=== PATIENT | female | born 1995 | race Caucasian/White ===

== ENCOUNTER 2017-03-17 04:55 | Emergency (ER) | payer MEDICAID, OTHER ==
[2017-03-17 05:17] VITALS: BP 110/78
--- NOTE | 2017-03-17 05:31 | EDM.PDOC ---
ED HPI GENERAL MEDICAL PROBLEM - General Chief Complaint: Gastrointestinal Problem Stated Complaint: Vomiting, diarrhea Time Seen by Provider: 03/17/17 05:01 Source of Information: Reports: Patient, RN, RN Notes Reviewed History Limitations: Reports: No Limitations - History of Present Illness INITIAL COMMENTS - FREE TEXT/NARRATIVE: The emergency room at [facility] complaining of vomiting and diarrhea. The patient states that the diarrhea started 2 days ago. The patient states that the vomiting started about 9 PM last evening. The vomitus has been bile sofia and also food contents. The patient states she's had approximately 12 episodes of vomiting. The patient states that her diarrhea has been very watery. She complains of abdominal cramping. The patient thinks she's had approximately 20 stools that have been watery. The patient denies any UTI symptoms. No close family members or contacts with similar symptoms. The patient has not had any fevers or chills. Otherwise no other complaints. Onset Date: 03/15/17 Duration: Waxing/Waning Location: Reports: Abdomen Quality: Reports: Sharp Severity: Mild Improves with: Reports: Rest Worsens with: Reports: None Context: Denies: Activity, Exercise, Lifting, Sick Contact, Trauma Associated Symptoms: Reports: Nausea/Vomiting epigastric pain Pain Score (Numeric/FACES): 6 - Related Data Allergies Allergy/AdvReac Type Severity Reaction Status Date / Time No Known Allergies Allergy Verified 03/17/17 05:44 Home Meds: Home Meds Ondansetron HCl [Ondansetron] 4 mg PO Q8H PRN #10 tablet 03/17/17 [Rx] predniSONE [Deltasone] 20 mg PO BID #10 tablet 03/17/17 [Rx] 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: - Past Surgical History HEENT Surgical History: Reports: Oral Surgery ED ROS GENERAL - Review of Systems Review Of Systems: See Below Constitutional: Denies: Fever, Chills, Weakness Respiratory: Denies: Shortness of Breath, Cough Cardiovascular: Denies: Chest Pain, Palpitations GI/Abdominal: Reports: Abdominal Pain, Diarrhea, Nausea, Vomiting Skin: Reports: No Symptoms Neurological: Reports: No Symptoms ED EXAM, GI/ABD - Physical Exam Exam: See Below Exam Limited By: No Limitations General Appearance: Alert, No Apparent Distress, Thin Respiratory/Chest: No Respiratory Distress, Lungs Clear, Normal Breath Sounds Cardiovascular: Normal Peripheral Pulses, Regular Rate, Rhythm GI/Abdominal Exam: Normal Bowel Sounds, Soft, Tender (generalized) Neurological: Alert, Oriented Skin Exam: Warm, Dry, Intact, Normal Color, No Rash Course - Vital Signs Last Recorded V/S: Last Vital Signs Temp 36.1 C 03/17/17 05:00 Pulse 96 03/17/17 05:00 Resp 16 03/17/17 05:00 BP 110/78 03/17/17 05:00 Pulse Ox 97 03/17/17 05:00 - Orders/Labs/Meds Orders: Active Orders 24 hr Category Date Time Status Abdomen Pelvis w Cont [CT] Stat Exams 03/17/17 06:59 Taken Sodium Chloride 0.9% [Normal Saline] 100 ml Med 03/17/17 08:15 Active IV ASDIRECTED Sodium Chloride 0.9% [Saline Flush] Med 03/17/17 05:43 Active 10 ml FLUSH ASDIRECTED PRN methylPREDNISolone Sod Succ [Solu-MEDROL] Med 03/17/17 08:32 Once 125 mg IVPUSH ONETIME ONE Peripheral IV Insertion Adult [OM.PC] Routine Oth 03/17/17 05:43 Ordered Medication Orders Sodium Chloride (Normal Saline) 100 mls @ 3 mls/sec IV ASDIRECTED NATALIE Last Admin: 03/17/17 08:09 Dose: 3 mls/sec Sodium Chloride (Saline Flush) 10 ml FLUSH ASDIRECTED PRN PRN Reason: Keep Vein Open Labs: Laboratory Tests 03/17/17 03/17/17 03/17/17 Range/Units 06:07 06:07 06:07 WBC 18.4 H (4.0-10.0) x10^3/uL RBC 4.08 (4.00-5.50) x10^6/uL Hgb 12.7 (12.0-16.0) g/dL Hct 35.4 (33.0-47.0) % MCV 86.8 (78.0-93.0) fL MCH 31.1 (26.0-32.0) pg MCHC 35.9 (32.0-36.0) g/dL RDW Coeff of Jorden 12.7 (10.0-15.0) % Plt Count 265 (130-400) x10^3/uL Neut % (Auto) 87.0 H (50.0-80.0) % Lymph % (Auto) 7.2 L (25.0-50.0) % [place] % (Auto) 5.4 (2.0-11.0) % Eos % (Auto) 0.3 (0.0-4.0) % Baso % (Auto) 0.1 L (0.2-1.2) % Sodium 140 (136-145) mmol/L Potassium 3.5 (3.5-5.1) mmol/L Chloride 109 H (98-107) mmol/L Carbon Dioxide 22 (21-32) mmol/L BUN 7 (7-18) mg/dL Creatinine 0.9 (0.55-1.02) mg/dL Est Cr Clr Drug Dosing TNP Estimated GFR (MDRD) > 60 Glucose 104 (74-106) mg/dL Lactic Acid 0.8 (0.4-2.0) mmol/L Calcium 8.8 (8.5-10.1) mg/dL C-Reactive Protein (<=0.9) mg/dL Amylase 65 (25-115) U/L Lipase 125 (73-393) U/L Urine Color (YELLOW) Urine Appearance (CLEAR) Urine pH (5.0-8.0) Ur Specific [place] Urine Protein (NEGATIVE) mg/dL Urine Glucose (UA) (NEGATIVE) mg/dL Urine Ketones (NEGATIVE) mg/dL Urine Occult Blood (NEGATIVE) Urine Nitrite (NEGATIVE) Urine Bilirubin (NEGATIVE) Urine Urobilinogen (0.2) EU/dL Ur Leukocyte Esterase (NEGATIVE) Urine RBC (NOT SEEN) /HPF Urine WBC (NOT SEEN) /HPF Ur Squamous Epith Cells (NEGATIVE) /HPF Urine Bacteria (NEGATIVE) /HPF Urine Mucus (NEGATIVE) /LPF Urine Yeast (Budding) Urine HCG, Qual (NEGATIVE) 03/17/17 03/17/17 03/17/17 Range/Units 06:07 06:50 06:50 WBC (4.0-10.0) x10^3/uL RBC (4.00-5.50) x10^6/uL Hgb (12.0-16.0) g/dL Hct (33.0-47.0) % MCV (78.0-93.0) fL MCH (26.0-32.0) pg MCHC (32.0-36.0) g/dL RDW Coeff of Jorden (10.0-15.0) % Plt Count (130-400) x10^3/uL Neut % (Auto) (50.0-80.0) % Lymph % (Auto) (25.0-50.0) % [place] % (Auto) (2.0-11.0) % Eos % (Auto) (0.0-4.0) % Baso % (Auto) (0.2-1.2) % Sodium (136-145) mmol/L Potassium (3.5-5.1) mmol/L Chloride (98-107) mmol/L Carbon Dioxide (21-32) mmol/L BUN (7-18) mg/dL Creatinine (0.55-1.02) mg/dL Est Cr Clr Drug Dosing Estimated GFR (MDRD) Glucose (74-106) mg/dL Lactic Acid (0.4-2.0) mmol/L Calcium (8.5-10.1) mg/dL C-Reactive Protein 0.4 (<=0.9) mg/dL Amylase (25-115) U/L Lipase (73-393) U/L Urine Color Yellow (YELLOW) Urine Appearance Slightly cloudy H (CLEAR) Urine pH 5.5 (5.0-8.0) Ur Specific [place] >=1.030 Urine Protein 30 H (NEGATIVE) mg/dL Urine Glucose (UA) Negative (NEGATIVE) mg/dL Urine Ketones Negative (NEGATIVE) mg/dL Urine Occult Blood Negative (NEGATIVE) Urine Nitrite Negative (NEGATIVE) Urine Bilirubin Small H (NEGATIVE) Urine Urobilinogen 0.2 (0.2) EU/dL Ur Leukocyte Esterase Negative (NEGATIVE) Urine RBC Not seen (NOT SEEN) /HPF Urine WBC 0-5 (NOT SEEN) /HPF Ur Squamous Epith Cells Moderate H (NEGATIVE) /HPF Urine Bacteria Few H (NEGATIVE) /HPF Urine Mucus Many H (NEGATIVE) /LPF Urine Yeast (Budding) Not seen Urine HCG, Qual Negative (NEGATIVE) Meds: Medications Generic Name Dose Route Start Last Admin Trade Name Freq PRN Reason Stop Dose Admin Sodium Chloride 100 mls @ 3 mls/sec 03/17/17 08:15 03/17/17 08:09 Normal Saline IV 3 mls/sec ASDIRECTED NATALIE Administration Sodium Chloride 10 ml 03/17/17 05:43 Saline Flush FLUSH ASDIRECTED PRN Keep Vein Open Discontinued Medications Generic Name Dose Route Start Last Admin Trade Name Sergo PRN Reason Stop Dose Admin Sodium Chloride 1,000 mls @ 999 mls/hr 03/17/17 05:44 03/17/17 06:20 Normal Saline IV 03/17/17 06:44 999 mls/hr ONETIME ONE Administration Sodium Chloride 1,000 mls @ 999 mls/hr 03/17/17 06:58 03/17/17 07:30 Normal Saline IV 03/17/17 07:58 999 mls/hr ONETIME ONE Administration Iopamidol 100 ml 03/17/17 08:06 03/17/17 08:08 Isovue-300 (61%) IVPUSH 03/17/17 08:07 100 ml ONETIME ONE Administration Ketorolac Tromethamine 30 mg 03/17/17 05:44 03/17/17 06:23 Toradol IVPUSH 03/17/17 05:45 30 mg ONETIME ONE Administration Ondansetron HCl 4 mg 03/17/17 05:44 03/17/17 06:20 Zofran IVPUSH 03/17/17 05:45 4 mg ONETIME ONE Administration Pantoprazole Sodium 40 mg 03/17/17 05:44 03/17/17 06:31 Protonix Iv IVPUSH 03/17/17 05:45 40 mg ONETIME ONE Administration Departure - Departure Time of Disposition: 08:33 Disposition: Home, Self-Care 01 Condition: Good Clinical Impression: Ileitis, Hepatic hemangioma, Follicular cyst of right ovary - Discharge Information Prescriptions: Ondansetron HCl [Ondansetron] 4 mg PO Q8H PRN #10 tablet PRN Reason: Nausea/Vomiting predniSONE [Deltasone] 20 mg PO BID #10 tablet Referrals: Christina Álvarez MD [Physician] - Forms: ED Department Discharge Additional Instructions: 1. Stay well hydrated and rest 2. Eat a bland diet; avoid fatty, greasy foods 3. Take medications as prescribed 4. You have an appointment with Dr. Christina Álvarez tomorrow March 17, 2017 at 1:20pm 5. Call your rehabilitation caseworker to change your Primary Care Provider to Dr. Álvarez ED Communication - ED Communication Date/Time Date: 03/17/17 Time Called: 08:15 - Discussed Case With (1) Discussed Case With (1): Radiologist (Dr. Frank Villavicencio) - Conversation Summary Radiology Reading Discussed with Radiologist: Yes - Problem List Review Problem List Initiated/Reviewed/Updated: Yes - My Orders Last 24 Hours: My Active Orders 03/17/17 05:43 Sodium Chloride 0.9% [Saline Flush] 10 ml FLUSH ASDIRECTED PRN Peripheral IV Insertion Adult [OM.PC] Routine 03/17/17 06:59 Abdomen Pelvis w Cont [CT] Stat 03/17/17 08:15 Sodium Chloride 0.9% [Normal Saline] 100 ml IV ASDIRECTED 03/17/17 08:32 methylPREDNISolone Sod Succ [Solu-MEDROL] 125 mg IVPUSH ONETIME ONE - Assessment/Plan Last 24 Hours: My Active Orders 03/17/17 05:43 Sodium Chloride 0.9% [Saline Flush] 10 ml FLUSH ASDIRECTED PRN Peripheral IV Insertion Adult [OM.PC] Routine 03/17/17 06:59 Abdomen Pelvis w Cont [CT] Stat 03/17/17 08:15 Sodium Chloride 0.9% [Normal Saline] 100 ml IV ASDIRECTED 03/17/17 08:32 methylPREDNISolone Sod Succ [Solu-MEDROL] 125 mg IVPUSH ONETIME ONE
[2017-03-17] MEDS ORDERED: Sodium Chloride 0.9% 10 ML Syringe FLUSH PRN (05:43)
[2017-03-17] MEDS ORDERED: Ketorolac 30 MG/ML SDV IVPUSH ONE (05:44)
[2017-03-17] MEDS ORDERED: Pantoprazole 40 MG Vial IVPUSH ONE (05:44)
[2017-03-17] MEDS ORDERED: Ondansetron 4 MG/2 ML SDV IVPUSH ONE (05:44)
[2017-03-17] MEDS ORDERED: Sodium Chloride 0.9% 1,000 ML IV ONE ×2 (05:44→06:58)
[2017-03-17 06:27] LABS: CHLORIDE,CL 109 mmol/L (98-107); SODIUM,NA 140 mmol/L (136-145)
[2017-03-17] MEDS ORDERED: Iopamidol 612 MG/ML 100 ML Bottle IVPUSH ONE (08:06)
[2017-03-17] MEDS ORDERED: Sodium Chloride 0.9% 100 ML IV SCH (08:15)
[2017-03-17] MEDS ORDERED: methylPREDNISolone Sodium Succinate 125 MG/2 ML SDV IVPUSH ONE (08:32)
== END 2017-03-17 09:03 | disposition home or self-care (01) ==
LOC: VM.ED 04:55
DX: K52.9 Noninfective gastroenteritis and colitis, unspecified (principal); D18.03 Hemangioma of intra-abdominal structures; N83.01 Follicular cyst of right ovary
CPT/HCPCS: 36415; 74177; 80048; 81001; 81025; 82150; 83605; 83690; 85025; 86140; 96361; 96374; 96375; 99284; C9113; J1885; J2405; J2930; J7030; J7050; Q9967

== ENCOUNTER 2017-04-06 08:40 | Day surgery (SDC) | payer MEDICAID ==
[~2017-04-06 08:40] MED LIST: Lactated Ringers 1,000 ML IV SCH
[2017-04-06] MEDS ORDERED: Propofol 200 MG/20 ML SDV ONE (10:01)
[2017-04-06] MEDS ORDERED: fentaNYL 100 MCG/2 ML SDV ONE (10:45)
[2017-04-06 12:01] VITALS: BP 96/54
--- NOTE | 2017-04-06 17:05 | OR ---
PREOPERATIVE DIAGNOSES: Diarrhea, change in bowel pattern, family history of Crohn's. POSTOPERATIVE DIAGNOSIS: Normal colonoscopic exam. Normal ileal exam. PROCEDURE PROPOSED AND PROCEDURE DONE: Total flexible colonoscopy with ileal and random colon biopsies. INDICATION: This is a 21-year-old female with about a month's history of significant diarrhea with a fairly sudden change in bowel patterns, some abdominal cramping, family history of Crohn's, and she was referred for colonoscopic exam. TECHNIQUE AND FINDINGS: The patient was brought to the endoscopy suite and placed in left lateral decubitus position. She was sedated per INDUSTRIAL REHABILITATION CONSULTANT with propofol. The flexible video colonoscope was then passed transanally and under visualization, advanced to the cecum. I was then able to intubate the ilium. The ilium appeared normal. No signs of any Crohn's or inflammation. Multiple biopsies were taken of the ilium. I brought the scope back into the colon. The entire colon looked very normal and healthy. The mucosa was very smooth and healthy appearing. No signs of any inflammation or ulceration. Multiple random biopsies were taken, approximately 12, throughout the colon for pathologic examination. There were no signs of any diverticular disease, polyps, or any other abnormalities. The scope was then withdrawn. She tolerated the procedure well. FINAL IMPRESSION: Normal exam of ilium and colon. Biopsies pending. PLAN: She does have a followup appointment with Dr. Álvarez next week. It appears that this is more of an irritable bowel problem as opposed to an inflammatory bowel disease. She may have had an element of self- limited colitis that resolved, but the exam was entirely normal today. Dr. Álvarez will continue management of this problem. SCM: 04/06/2017 10:59:03 MODL: 04/06/2017 16:21:32 /[id number]
--- NOTE | 2017-04-26 08:45 | LETTER ---
04/26/2017 Xiao Parikh RE: XIAO PARIKH : 1995 Dear Xiao: All the biopsies taken from your terminal ileum and your colon came back normal. There was no evidence of any bowel disease such as Crohn's or colitis. I am hoping that things are improving for you. If you have any further questions feel free to call. Respectfully,
== END 2017-04-06 12:19 | disposition home or self-care (01) ==
LOC: VM.SDS 08:40
PROVIDERS: ATTEND Surgery
DX: R19.7 Diarrhea, unspecified (principal); R19.4 Change in bowel habit; F41.1 Generalized anxiety disorder; F33.1 Major depressive disorder, recurrent, moderate; Z83.79 Family history of other diseases of the digestive system; Z91.018 Allergy to other foods; Z98.890 Other specified postprocedural states; F17.200 Nicotine dependence, unspecified, uncomplicated
CPT/HCPCS: 45380; 81025; J2704; J3010; J7120

== ENCOUNTER 2019-05-30 11:42 | Emergency (ER) | payer MEDICAID ==
[2019-05-30] MEDS: Sodium Chloride 0.9% 1,000 ML IV ONE (11:55)
[2019-05-30] MEDS ORDERED: Sodium Chloride 0.9% 10 ML Syringe FLUSH PRN (11:55)
[2019-05-30] MEDS: Ondansetron 4 MG/2 ML SDV IVPUSH ONE (12:00)
--- NOTE | 2019-05-30 12:12 | EDM.PDOC ---
ED HPI GENERAL MEDICAL PROBLEM - General Chief Complaint: General Time Seen by Provider: 05/30/19 11:45 Source of Information: Reports: Patient History Limitations: Reports: No Limitations - History of Present Illness INITIAL COMMENTS - FREE TEXT/NARRATIVE: Pt. presents to ER with complaints of nausea, vomiting, and diarrhea for approx. 12 hours. She states that she is also experiencing some body aches and fatigue. She complains of sinus congestion. Denies any chest pain or shortness of breath. Pt. states that she is not sure home many episodes of diarrhea and vomiting she has had. Denies any sick contacts. Denies any melena, hematochezia, or hematemesis. She has not had her influenza vaccination this year. Pt. complains of diffuse abdominal cramping. Denies any focal tenderness. Onset: Today Location: Reports: Abdomen, Generalized Associated Symptoms: Reports: Malaise, Nausea/Vomiting, Weakness. Denies: Confusion, Chest Pain, Cough, cough w sputum, Diaphoresis, Fever/Chills, Rash, Seizure, Shortness of Breath, Syncope Generalized Pain Score (Numeric/FACES): 6 - Related Data Allergies Allergy/AdvReac Type Severity Reaction Status Date / Time banana Allergy Itching Verified 05/30/19 12:54 honey Allergy Edema Verified 05/30/19 12:54 chapstick Allergy Itching Uncoded 05/30/19 12:54 Home Meds: Home Meds . 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 idopathic toewalking Neurological History: Reports: None Psychiatric History: Reports: Anxiety, Depression, Panic Attack Endocrine/Metabolic History: Reports: None Hematologic History: Reports: None Immunologic History: Reports: None Oncologic (Cancer) History: Reports: None Dermatologic History: Reports: None - Past Surgical History GI Surgical History: ED ROS GENERAL - Review of Systems Review Of Systems: See Below Constitutional: Reports: Malaise, Weakness, Fatigue, Decreased Appetite. Denies : Night Sweats, Diaphoresis HEENT: Reports: Sinus Problem Respiratory: Reports: No Symptoms Cardiovascular: Reports: No Symptoms Endocrine: Reports: No Symptoms GI/Abdominal: Reports: Abdominal Pain, Diarrhea, Nausea, Vomiting. Denies: Constipation, Hematemesis, Hematochezia, Melena : Reports: No Symptoms Musculoskeletal: Reports: No Symptoms Skin: Reports: No Symptoms Neurological: Reports: No Symptoms Psychiatric: Reports: No Symptoms Hematologic/Lymphatic: Reports: No Symptoms ED EXAM, GENERAL - Physical Exam Exam: See Below Exam Limited By: No Limitations General Appearance: Alert, WD/WN, Mild Distress Eye Exam: Bilateral Eye: EOMI, PERRL Nose: Normal Inspection, No Blood Throat/Mouth: Normal Lips, Normal Teeth, Normal Gums, Normal Oropharynx, Normal Voice, No Airway Compromise, Other (oral mucosa dry) Head: Atraumatic, Normocephalic Neck: Normal Inspection, Supple, Non-Tender, Full Range of Motion Respiratory/Chest: No Respiratory Distress, Lungs Clear, Normal Breath Sounds, No Accessory Muscle Use, Chest Non-Tender Cardiovascular: Normal Peripheral Pulses, Regular Rate, Rhythm, No Edema, No Gallop, No JVD, No Murmur, No Rub GI/Abdominal: Normal Bowel Sounds, Soft, No Organomegaly, No Distention, No Abnormal Bruit, No Mass, Tender (diffusely tender throughout). No: Abnormal Bowel Sounds (Female) Exam: Deferred Rectal (Female) Exam: Deferred Back Exam: Normal Inspection, Full Range of Motion Extremities: Normal Inspection, Normal Range of Motion, Non-Tender, No Pedal Edema, Normal Capillary Refill Neurological: Alert, Oriented, CN II-XII Intact, Normal Cognition, Normal Gait, Normal Reflexes, No Motor/Sensory Deficits Psychiatric: Normal Affect, Normal Mood Skin Exam: Warm, Dry, Intact, No Rash, Pallor Lymphatic: No Adenopathy Course - Vital Signs Last Recorded V/S: Last Vital Signs Temp 36.5 C 05/30/19 11:42 Pulse 85 05/30/19 11:42 Resp 16 05/30/19 11:42 BP 113/72 05/30/19 11:42 Pulse Ox 99 05/30/19 11:42 - Orders/Labs/Meds Orders: Active Orders 24 hr Category Date Time Status Peripheral IV Insertion Adult [OM.PC] Routine Oth 05/30/19 11:55 Ordered Labs: Laboratory Tests 05/30/19 05/30/19 05/30/19 Range/Units 12:05 12:05 12:05 WBC 13.4 H (4.0-10.0) x10^3/uL RBC 4.29 (4.00-5.50) x10^6/uL Hgb 12.9 (12.0-16.0) g/dL Hct 38.3 (33.0-47.0) % MCV 89.3 (78.0-93.0) fL MCH 30.1 (26.0-32.0) pg MCHC 33.7 (32.0-36.0) g/dL RDW Coeff of Jorden 12.8 (10.0-15.0) % Plt Count 261 (130-400) x10^3/uL Neut % (Auto) 94.7 H (50.0-80.0) % Lymph % (Auto) 2.7 L (25.0-50.0) % [place] % (Auto) 2.5 (2.0-11.0) % Eos % (Auto) 0.0 (0.0-4.0) % Baso % (Auto) 0.1 L (0.2-1.2) % PT 11.0 (10.0-12.8) SEC INR 1.0 L (2.0-3.5) Sodium 141 (136-145) mmol/L Potassium 3.7 (3.5-5.1) mmol/L Chloride 104 (98-107) mmol/L Carbon Dioxide 20 L (21-32) mmol/L Anion Gap 20.7 H (10-20) mmol/L BUN 9 (7-18) mg/dL Creatinine 0.9 (0.55-1.02) mg/dL Est Cr Clr Drug Dosing TNP Estimated GFR (MDRD) > 60 Glucose 103 (74-106) mg/dL Calcium 8.8 (8.5-10.1) mg/dL Corrected Calcium 8.64 (8.5-10.1) mg/dL Phosphorus 3.5 (2.6-4.7) mg/dL Magnesium 1.6 L (1.8-2.4) mg/dL Total Bilirubin 1.4 H (0.2-1.0) mg/dL AST 15 (15-37) U/L ALT 15 (14-59) U/L Alkaline Phosphatase 50 (46-116) U/L C-Reactive Protein < 0.2 (<=0.9) mg/dL Total Protein 7.9 (6.4-8.2) g/dL Albumin 4.2 (3.4-5.0) g/dL Globulin 3.7 Albumin/Globulin Ratio 1.14 Urine Color (YELLOW) Urine Appearance (CLEAR) Urine pH (5.0-8.0) Ur Specific [place] Urine Protein (NEGATIVE) mg/dL Urine Glucose (UA) (NEGATIVE) mg/dL Urine Ketones (NEGATIVE) mg/dL Urine Occult Blood (NEGATIVE) Urine Nitrite (NEGATIVE) Urine Bilirubin (NEGATIVE) Urine Urobilinogen (0.2) EU/dL Ur Leukocyte Esterase (NEGATIVE) Urine RBC (NOT SEEN) /HPF Urine WBC (NOT SEEN) /HPF Ur Squamous Epith Cells (NEGATIVE) /HPF Amorphous Sediment Urine Bacteria (NEGATIVE) /HPF Urine Mucus (NEGATIVE) /LPF POC Urine HCG, Qual (NEGATIVE) 05/30/19 05/30/19 Range/Units 13:06 13:06 WBC (4.0-10.0) x10^3/uL RBC (4.00-5.50) x10^6/uL Hgb (12.0-16.0) g/dL Hct (33.0-47.0) % MCV (78.0-93.0) fL MCH (26.0-32.0) pg MCHC (32.0-36.0) g/dL RDW Coeff of [place] (10.0-15.0) % Plt Count (130-400) x10^3/uL Neut % (Auto) (50.0-80.0) % Lymph % (Auto) (25.0-50.0) % [place] % (Auto) (2.0-11.0) % Eos % (Auto) (0.0-4.0) % Baso % (Auto) (0.2-1.2) % PT (10.0-12.8) SEC INR (2.0-3.5) Sodium (136-145) mmol/L Potassium (3.5-5.1) mmol/L Chloride (98-107) mmol/L Carbon Dioxide (21-32) mmol/L Anion Gap (10-20) mmol/L BUN (7-18) mg/dL Creatinine (0.55-1.02) mg/dL Est Cr Clr Drug Dosing Estimated GFR (MDRD) Glucose (74-106) mg/dL Calcium (8.5-10.1) mg/dL Corrected Calcium (8.5-10.1) mg/dL Phosphorus (2.6-4.7) mg/dL Magnesium (1.8-2.4) mg/dL Total Bilirubin (0.2-1.0) mg/dL AST (15-37) U/L ALT (14-59) U/L Alkaline Phosphatase (46-116) U/L C-Reactive Protein (<=0.9) mg/dL Total Protein (6.4-8.2) g/dL Albumin (3.4-5.0) g/dL Globulin Albumin/Globulin Ratio Urine Color Dark yellow H (YELLOW) Urine Appearance Slightly cloudy H (CLEAR) Urine pH 5.5 (5.0-8.0) Ur Specific [place] >=1.030 Urine Protein 30 H (NEGATIVE) mg/dL Urine Glucose (UA) Negative (NEGATIVE) mg/dL Urine Ketones 40 H (NEGATIVE) mg/dL Urine Occult Blood Trace-lysed H (NEGATIVE) Urine Nitrite Negative (NEGATIVE) Urine Bilirubin Small H (NEGATIVE) Urine Urobilinogen 0.2 (0.2) EU/dL Ur Leukocyte Esterase Negative (NEGATIVE) Urine RBC 0-5 (NOT SEEN) /HPF Urine WBC 0-5 (NOT SEEN) /HPF Ur Squamous Epith Cells Moderate H (NEGATIVE) /HPF Amorphous Sediment Many Urine Bacteria Few H (NEGATIVE) /HPF Urine Mucus Many H (NEGATIVE) /LPF POC Urine HCG, Qual Negative (NEGATIVE) Meds: Medications Discontinued Medications Generic Name Dose Route Start Last Admin Trade Name Freq PRN Reason Stop Dose Admin Sodium Chloride 1,000 mls @ 1,000 mls/hr 05/30/19 11:56 05/30/19 11:55 Normal Saline IV 05/30/19 12:55 1,000 mls/hr .BOLUS ONE Administration Sodium Chloride 500 mls @ 500 mls/hr 05/30/19 13:31 05/30/19 13:45 Normal Saline IV 05/30/19 14:30 500 mls/hr ONETIME ONE Administration Iopamidol 100 ml 05/30/19 12:28 05/30/19 13:43 Isovue-300 (61%) IVPUSH 05/30/19 12:29 100 ml ONETIME ONE Administration Ketorolac Tromethamine 15 mg 05/30/19 12:08 05/30/19 12:13 Toradol IVPUSH 05/30/19 12:09 15 mg ONETIME ONE Administration Ondansetron HCl 4 mg 05/30/19 11:56 05/30/19 12:00 Zofran IVPUSH 05/30/19 11:57 4 mg ONETIME ONE Administration Sodium Chloride 10 ml 05/30/19 11:55 Saline Flush FLUSH ASDIRECTED PRN Keep Vein Open - Radiology Interpretation Free Text/Narrative:: Colonic wall thickening without free fluid or evidence of perforation. No obvious abscess. Appearance consistent with that of IBS. Departure - Departure Time of Disposition: 13:30 Disposition: Home, Self-Care 01 Clinical Impression: IBS (irritable bowel syndrome) - Discharge Information Instructions: Irritable Bowel Syndrome, Adult Referrals: Christina Álvarez MD [Primary Care Provider] - Forms: ED Department Discharge Additional Instructions: Home to rest. Tylenol and ibuprofen as needed for discomfort/fever. Zofran 4 mg ODT 1 tab every 6 hours. Clear liquid diet until noon tomorrow, then you can add toast, rice, apples, bananas, and other bland foods. Off work today and tomorrow. Return to ER if unable to hold down fluids. - My Orders Last 24 Hours: My Active Orders 05/30/19 11:55 Peripheral IV Insertion Adult [OM.PC] Routine - Assessment/Plan Last 24 Hours: My Active Orders 05/30/19 11:55 Peripheral IV Insertion Adult [OM.PC] Routine Plan: Home to rest. Tylenol and ibuprofen as needed for discomfort/fever. Zofran 4 mg ODT 1 tab every 6 hours. Clear liquid diet until noon tomorrow, then you can add toast, rice, apples, bananas, and other bland foods. Off work today and tomorrow. Return to ER if unable to hold down fluids.
[2019-05-30] MEDS: Ketorolac 15 MG/ML SDV IVPUSH ONE (12:13)
[2019-05-30 12:34] LABS: CHLORIDE,CL 104 mmol/L (98-107); SODIUM,NA 141 mmol/L (136-145)
[2019-05-30 12:35] LABS: ANION GAP 20.7 mmol/L (10-20)
[2019-05-30 12:57] VITALS: BP 113/72; PULSE 85
[2019-05-30] MEDS: Iopamidol 612 MG/ML 100 ML Bottle IVPUSH ONE (13:43)
[2019-05-30] MEDS: Sodium Chloride 0.9% 500 ML IV ONE (13:45)
--- NOTE | 2019-05-30 14:19 | CT ---
[id number] CT/CT Abdomen Pelvis W IV EXAM: CT Abdomen Pelvis W IV CLINICAL DATA: ABDOMINAL PAIN,ELEVATED WHITE BLOOD COUNT. COMPARISON STUDY: March 20, 2019. FINDINGS: In the pelvis there are numerous loops of small bowel that demonstrate mild amount of persistent wall thickening and/or fluid-filled. Findings suggest underlying enteritis. However appearance of the bowel has improved since the prior examination at which time there is increased wall thickening/edema. Appendix is not well-visualized. No secondary signs of acute appendicitis. No colitis or diverticulitis. Trace amount free fluid the pelvis, within normal physiologic limits for reproductive age female. Uterus and adnexal regions are radiographically unremarkable. No change in appearance of a heterogeneous hypodense mass in the right hepatic lobe. Mass measures up to 16 mm in diameter, similar size compared to the prior examination. There are multiple areas of discontinuous nodular peripheral enhancement, similar to the prior examination. No new hepatic lesions. IMPRESSION: Persistent wall thickening and numerous loops of small bowel in the pelvis. Findings are most consistent with changes of enteritis. The amount of wall thickening/edema has decreased since the prior CT examination. No evidence of an abscess. No other acute findings in the upper pelvis. Stable appearance of previously seen hypodense right hepatic lobe mass. Appearance is most consistent with hemangioma. A dedicated liver protocol CT can be performed to confirm these findings as clinically warranted. Frank Villavicencio MD 05/30/19 [id number] Thank you for allowing us to participate in the care of your patient.
== END 2019-05-30 14:43 | disposition home or self-care (01) ==
LOC: VM.ED 11:42
DX: K58.0 Irritable bowel syndrome with diarrhea (principal); Z91.018 Allergy to other foods
CPT/HCPCS: 36415; 74177; 80053; 81001; 81025; 83735; 84100; 85025; 85610; 86140; 87804; 96361; 96374; 96375; 99285; J1885; J2405; J7030; J7040; Q9967

== ENCOUNTER 2019-11-01 00:25 | Emergency (ER) | payer SELFPAY ==
--- NOTE | 2019-11-01 01:15 | EDM.PDOCBH ---
ED HPI GENERAL MEDICAL PROBLEM - General Chief Complaint: Behavioral/Psych Stated Complaint: Depression, thoughts of suicide, no plan Time Seen by Provider: 11/01/19 00:40 Source of Information: Reports: Patient - History of Present Illness INITIAL COMMENTS - FREE TEXT/NARRATIVE: She comes emergency department today with local Police Department after they were summoned for a welfare check. The patient is currently having quite struggles with the current person she is living with who happens to be her ex significant other who they have a child together. She has to stay with him because she has no place else to live. In 2 weeks she is going to be homeless. She is struggling to find a job with the current COVID situation. Tonight she was really feeling down and just really does not know what to do with her life and wanted to talk with someone. She told her friend that she does not really have a purpose to live anymore if she cannot be with her child. Her friend was concerned about her and called the water aerobics instructor for a welfare check. The patient denies any suicidal ideation or suicidal plan. She just is at a loss and wants to talk to someone. She does see someone in the past for counseling but really did not work out she did not feel that she was getting the appropriate attention that she needed during her visits. She has had suicidal ideation in the past and she has had that for many years but she is not currently suicidal. She denies any drug or alcohol usage. She really would like to get set up with someone different tomorrow for counseling and wants to go home and sleep tonight. - Related Data Allergies Allergy/AdvReac Type Severity Reaction Status Date / Time banana Allergy Itching Verified 11/01/19 00:38 honey Allergy Edema Verified 11/01/19 00:38 chapstick Allergy Itching Uncoded 11/01/19 00:38 Home Meds: Home Meds . 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 idopathic toewalking Neurological History: Reports: None Psychiatric History: Reports: Anxiety, Depression, Panic Attack Endocrine/Metabolic History: Reports: None Hematologic History: Reports: None Immunologic History: Reports: None Oncologic (Cancer) History: Reports: None Dermatologic History: Reports: None - Past Surgical History GI Surgical History: ED ROS GENERAL - Review of Systems Review Of Systems: See Below ED EXAM, BEHAVIORAL HEALTH - Physical Exam Exam: See Below Exam Limited By: No Limitations General Appearance: Alert, WD/WN Eye Exam: Bilateral Eye: EOMI Ears: Normal External Exam, Normal TMs Throat/Mouth: Normal Inspection, Normal Lips Head: Atraumatic, Normocephalic Neck: Normal Inspection, Supple, Non-Tender Respiratory/Chest: No Respiratory Distress, Lungs Clear, Normal Breath Sounds, No Accessory Muscle Use, Chest Non-Tender Cardiovascular: Normal Peripheral Pulses, Regular Rate, Rhythm GI/Abdominal: Normal Bowel Sounds, Soft Back Exam: Normal Inspection Extremities: Normal Inspection, Normal Range of Motion, No Pedal Edema Neurological: Alert, Normal Mood/Affect, Normal Cognition, Normal Reflexes, No Motor/Sensory Deficits Psychiatric: Alert, Normal Cognition, Oriented, Flat Affect, Poor Eye Contact, Withdrawn. No: Flight of Ideas, Homicidal Thoughts, Phobic, Mormonism Delusions , Suicidal Plan, Suicidal Thoughts, Tangential Thoughts, Auditory Hallucinations , Visual Hallucinations, Grandiose Thoughts, Pressured Speech, Paranoid Thoughts , Threatening Behavior Skin Exam: Warm, Dry, Intact, Normal color, No rash COURSE, BEHAVIORAL HEALTH COMP - Course Vital Signs: Last Vital Signs Temp 36.8 C 11/01/19 00:25 Pulse 78 11/01/19 00:25 Resp 16 11/01/19 00:25 BP 130/76 11/01/19 00:25 Pulse Ox Medical Clearance: 11/01/19 16:43 I sat and visited with the patient for about 35 minutes. At the beginning of the conversation she was very quiet reserved poor eye contact and did not communicate much. After we sat and just visited about her past ways that she can work through with coping and other means to deal with her anxiety and depression that she is struggled with for a long time she is very happy smiling interactive good eye contact. Her speech initially was very slow and really minimal words but by the end we are having very thorough extended conversations. She stated that she felt much better and she would just like to go home and sleep. We did talk with the human service [facility] in [place] and we did set her up with a screener for tomorrow. The patient does contract for safety at this time although she still denies that she is suicidal. She will be discharged home with the police and there is someone there to make sure that she is safe tonight. Departure - Departure Time of Disposition: 00:55 Disposition: Home, Self-Care 01 Clinical Impression: Depressive disorder, Passive suicidal ideations - Discharge Information *PRESCRIPTION DRUG MONITORING PROGRAM REVIEWED*: Not Applicable *COPY OF PRESCRIPTION DRUG MONITORING REPORT IN PATIENT RU: Not Applicable Instructions: Suicidal Feelings: How to Help Yourself Referrals: PCP,Unobtain [Primary Care Provider] - Forms: ED Department Discharge Additional Instructions: If at any time you have thoughts or plans of harming yourself or others you contracted for safety tonight in the ED to call 911 or contact a crisis line for your safety. [facility] will contact you tomorrow for follow up and plans for residential therapy. Return to the ED if new or worsening symptoms especially if any suicidal thought plans or ideation. Follow up with [facility] psychiatrist or other prescribers for possibly getting back on your chronic anxiety depression meds. Sepsis Event Note - Focused Exam Date Exam was Performed: 11/01/19 Time Exam was Performed: 16:38
[2019-11-01 02:18] VITALS: BP 130/76; PULSE 78
== END 2019-11-01 01:28 | disposition home or self-care (01) ==
LOC: VM.ED 00:25
DX: F32.9 Major depressive disorder, single episode, unspecified (principal); Z91.018 Allergy to other foods
CPT/HCPCS: 99284

== ENCOUNTER 2021-06-28 15:48 | Emergency (ER) | payer MEDICAID ==
[2021-06-28 16:41] LABS: CHLORIDE,CL 106 mmol/L (98-107); SODIUM,NA 141 mmol/L (136-145)
[2021-06-28 16:42] LABS: ANION GAP 14.6 mmol/L (5-15)
[2021-06-28 16:52] LABS: PTT,PARTIAL THROMBOPLSTIN TIME 23.1 SEC (25.6-32.8)
--- NOTE | 2021-06-28 17:18 | EDM.PDOC ---
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 back pain Time Seen by Provider: 06/28/21 15:55 Source of Information: Reports: Patient History Limitations: Reports: No Limitations - History of Present Illness INITIAL COMMENTS - FREE TEXT/NARRATIVE: States delivered baby on . Received blood. Was discharged from [facility] today. States sudden onset numbness and pain in back and legs. States right leg swollen. States bleeding 3 pads today, but thinks it may be increasing. Onset: Today, Unknown/Unsure Duration: Getting Worse Location: Reports: Abdomen, Lower Extremity, Right Quality: Reports: Ache, Other (numbness and pain) Improves with: Reports: None Worsens with: Reports: Movement Context: Reports: Other (recently delivered child and had epidural) Associated Symptoms: Reports: Weakness - Related Data Allergies Allergy/AdvReac Type Severity Reaction Status Date / Time banana Allergy Itching Verified 11/01/19 00:38 honey Allergy Edema Verified 11/01/19 00:38 chapstick Allergy Itching Uncoded 11/01/19 00:38 Home Meds: Home Meds . 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 idopathic toewalking Neurological History: Reports: None Psychiatric History: Reports: Anxiety, Depression, Panic Attack Endocrine/Metabolic History: Reports: None Hematologic History: Reports: None Immunologic History: Reports: None Oncologic (Cancer) History: Reports: None Dermatologic History: Reports: None - Past Surgical History GI Surgical History: ED ROS GENERAL - Review of Systems Review Of Systems: See Below Constitutional: Reports: Weakness HEENT: Reports: No Symptoms Respiratory: Reports: No Symptoms Cardiovascular: Reports: Edema Endocrine: Reports: No Symptoms GI/Abdominal: Reports: Abdominal Pain : Reports: Other (vaginal bleeding ) Musculoskeletal: Reports: Leg Pain Skin: Reports: No Symptoms Neurological: Reports: Numbness (states numbness to back and legs along with pain sensation) Psychiatric: Reports: No Symptoms Hematologic/Lymphatic: Reports: No Symptoms (recent blood transfusion), Other Immunologic: Reports: No Symptoms ED EXAM, GI/ABD - Physical Exam Exam: See Below Exam Limited By: No Limitations General Appearance: Alert, Mild Distress, Other (general appearance of not feeling well) Eyes: Bilateral: Normal Appearance Throat/Mouth: Normal Gums, Normal Voice, No Airway Compromise, Other (dry lips) Head: Atraumatic, Normocephalic Neck: Supple, Full Range of Motion Respiratory/Chest: No Respiratory Distress, Lungs Clear, Normal Breath Sounds, No Accessory Muscle Use, Chest Non-Tender Cardiovascular: Regular Rate, Rhythm, Other (BLE edmea, R greater than left) GI/Abdominal Exam: Other (fundus firm and approx three fingers below umbilicus) Back Exam: Other (epidural site without noted complications) Extremities: Normal Capillary Refill, Pedal Edema, Leg Pain Neurological: Alert, Oriented Psychiatric: Other (affect somewhat flat, but does not appear to feel well) Lymphatic: No Adenopathy Course - Orders/Labs/Meds Labs: Laboratory Tests 06/28/21 06/28/21 06/28/21 Range/Units 16:00 16:00 16:00 WBC 17.4 H (4.0-10.0) x10^3/uL RBC 2.71 L (4.00-5.50) x10^6/uL Hgb 9.0 L (12.0-16.0) g/dL Hct 24.9 L (33.0-47.0) % MCV 91.9 (78.0-93.0) fL MCH 33.2 H (26.0-32.0) pg MCHC 36.1 H (32.0-36.0) g/dL RDW Coeff of Jorden 14.6 (10.0-15.0) % Plt Count 239 (130-400) x10^3/uL Immature Gran % (Auto) 0.40 (0.00-0.43) % Neut % (Auto) 76.2 (50.0-80.0) % Lymph % (Auto) 17.1 L (25.0-50.0) % [place] % (Auto) 5.0 (2.0-11.0) % Eos % (Auto) 1.0 (0.0-4.0) % Baso % (Auto) 0.3 (0.2-1.2) % Neut # (Auto) 13.2 H (1.8-7.7) x10^3/uL Lymph # (Auto) 3.0 (1.0-4.8) x10^3/uL [place] # (Auto) 0.9 H (0.0-0.8) x10^3/uL Eos # (Auto) 0.2 (0.0-0.5) x10^3/uL Baso # (Auto) 0.1 (0.0-0.2) x10^3/uL Immature Gran # (Auto) 0.07 (0.00-0.07) x10^3/uL PT (9.9-12.5) SEC INR (2.0-3.5) APTT (25.6-32.8) SEC D-Dimer, Quantitative 3.83 H (<=0.58) mg/LFEU Sodium 141 (136-145) mmol/L Potassium 3.6 (3.5-5.1) mmol/L Chloride 106 (98-107) mmol/L Carbon Dioxide 24 (21-32) mmol/L Anion Gap 14.6 (5-15) mmol/L BUN 7 (7-18) mg/dL Creatinine 0.6 (0.55-1.02) mg/dL Est Cr Clr Drug Dosing TNP Estimated GFR (MDRD) > 60 Glucose 93 (70-99) mg/dL Calcium 8.7 (8.5-10.1) mg/dL Corrected Calcium 9.9 (8.5-10.1) mg/dL Total Bilirubin 0.4 (0.2-1.0) mg/dL AST 59 H (15-37) U/L ALT 36 (14-59) U/L Alkaline Phosphatase 102 (46-116) U/L Total Protein 5.8 L (6.4-8.2) g/dL Albumin 2.5 L (3.4-5.0) g/dL Globulin 3.3 Albumin/Globulin Ratio 0.76 12// Range/Units 16:00 WBC (4.0-10.0) x10^3/uL RBC (4.00-5.50) x10^6/uL Hgb (12.0-16.0) g/dL Hct (33.0-47.0) % MCV (78.0-93.0) fL MCH (26.0-32.0) pg MCHC (32.0-36.0) g/dL RDW Coeff of Jorden (10.0-15.0) % Plt Count (130-400) x10^3/uL Immature Gran % (Auto) (0.00-0.43) % Neut % (Auto) (50.0-80.0) % Lymph % (Auto) (25.0-50.0) % [place] % (Auto) (2.0-11.0) % Eos % (Auto) (0.0-4.0) % Baso % (Auto) (0.2-1.2) % Neut # (Auto) (1.8-7.7) x10^3/uL Lymph # (Auto) (1.0-4.8) x10^3/uL [place] # (Auto) (0.0-0.8) x10^3/uL Eos # (Auto) (0.0-0.5) x10^3/uL Baso # (Auto) (0.0-0.2) x10^3/uL Immature Gran # (Auto) (0.00-0.07) x10^3/uL PT 8.9 L (9.9-12.5) SEC INR 0.8 L (2.0-3.5) APTT 23.1 L (25.6-32.8) SEC D-Dimer, Quantitative (<=0.58) mg/LFEU Sodium (136-145) mmol/L Potassium (3.5-5.1) mmol/L Chloride (98-107) mmol/L Carbon Dioxide (21-32) mmol/L Anion Gap (5-15) mmol/L BUN (7-18) mg/dL Creatinine (0.55-1.02) mg/dL Est Cr Clr Drug Dosing Estimated GFR (MDRD) Glucose (70-99) mg/dL Calcium (8.5-10.1) mg/dL Corrected Calcium (8.5-10.1) mg/dL Total Bilirubin (0.2-1.0) mg/dL AST (15-37) U/L ALT (14-59) U/L Alkaline Phosphatase (46-116) U/L Total Protein (6.4-8.2) g/dL Albumin (3.4-5.0) g/dL Globulin Albumin/Globulin Ratio - Re-Assessments/Exams Free Text/Narrative Re-Assessment/Exam: 06/28/21 17:30 Started IV and obtained labs. While awaiting labs, pt became upset, expressed anger about nurse, and wanted to leave. Attempted to get pt to wait until labs are back and when we talked with her OB doctor. She agreed and Dr. Linares was called. Stated labs were approx the same as they were there this AM. Stated she could be seen in [facility] ER if she desires. Pt stated wanted to leave, did not want to wait for discharge or AMA forms. PT was encouraged to stay and avoid having to travel in the weather tonight, but she stated she was going to [place] to the ER. [facility] ER provider was called and a report on pt was given. Departure - Departure Time of Disposition: 17:20 Disposition: Against Medical Advice 07 Condition: Good Clinical Impression: Right leg swelling - Discharge Information Referrals: Christina Álvarez MD [Primary Care Provider] - Forms: ED Department Discharge Additional Instructions: Pt left AMA for [facility]. See documentation. - Problem List & Annotations (1) Right leg swelling SNOMED Code(s): 049359957 Code(s): M79.89 - OTHER SPECIFIED SOFT TISSUE DISORDERS Status: Acute Current Visit: Yes - Problem List Review Problem List Initiated/Reviewed/Updated: Yes
[2021-06-28 17:32] VITALS: BP 142/90; PULSE 67
== END 2021-06-28 17:20 | disposition left against medical advice (07) ==
LOC: VM.ED 15:48
DX: M79.89 Other specified soft tissue disorders (principal); Z88.8 Allergy status to other drugs, medicaments and biological substances
CPT/HCPCS: 80053; 85025; 85379; 85610; 85730; 99283